=== PATIENT | male | born 1930 | race Caucasian/White ===

== ENCOUNTER 2018-05-23 11:36 | Inpatient (IN) ==
[2018-05-23 12:25] LABS: Baso # (Auto) 0.1 th/mm3 (0.0-0.2); Baso % (Auto) 0.8 % (0.0-2.0); Eos # (Auto) 0.1 th/mm3 (0.0-0.4); Eos % (Auto) 0.6 % (0.0-4.0); Hematocrit 42.6 % (39.0-51.0); Hemoglobin 13.5 gm/dL (13.0-17.0); Lymph # (Auto) 1.2 th/mm3 (1.0-4.8); Lymph % (Auto) 14.1 % (9.0-44.0); Mean Corpuscular HGB Conc 31.7 % (32.0-36.0); Mean Corpuscular Hemoglobin 25.8 pg (27.0-34.0); Mean Corpuscular Volume 81.4 fL (80.0-100.0); Mean Platelet Volume 10.9 fL (7.0-11.0); Mono # (Auto) 0.6 th/mm3 (0.0-0.9); Mono % (Auto) 7.2 % (0.0-8.0); Neut # (Auto) 6.5 th/mm3 (1.8-7.7); Neut % (Auto) 77.3 % (16.0-70.0); Platelet Count 169 th/mm3 (150-450); Red Blood Count 5.23 mil/mm3 (4.50-5.90); Red Cell Distribution Width 16.2 % (11.6-17.2); White Blood Count 8.5 th/mm3 (4.0-11.0)
[2018-05-23 12:32] LABS: Chloride 97 meq/L (98-107); Sodium 131 meq/L (136-145)
--- NOTE | 2018-05-23 12:32 | ED ---
HPI General Chief complaint: GI Bleed Stated complaint: fatigue/weakness/no appetite/blood in the stool Time Seen by Provider: 05/23/18 12:02 Source: patient Mode of arrival: ambulatory Limitations: no limitations History of Present Illness HPI Narrative: Patient's primary care is Dr. Perez No known drug allergy Past medical history significant for hypertension, deafness, blindness, history of pacemaker, history of left knee replacement, currently on Plavix Patient has had 3 days history of bright red blood per rectum with every bowel movement that he has had. Patient denies any abdominal pain nausea or vomiting MD complaint: Reports gross hematochezia Onset (ago): day(s) (3) Pain Consistency: constant Severity: moderate Relieving factors: none Exacerbating factors: none Associated symptoms: Reports denies other symptoms Treatments Prior to Arrival: Reports none Related Data Home Medications Medication Instructions Recorded Confirmed amlodipine 5 mg PO DAILY 05/23/18 05/23/18 carvedilol 3.125 mg PO BID 05/23/18 05/23/18 furosemide 20 mg PO DAILY 05/23/18 05/23/18 oxycodone 5 mg PO Q4-6H PRN 05/23/18 05/23/18 spironolactone 25 mg PO DAILY 05/23/18 05/23/18 sulfamethoxazole-trimethoprim 2 tab PO BID 05/23/18 05/23/18 Allergies Allergy/AdvReac Type Severity Reaction Status Date / Time No Known Allergies Allergy Verified 05/23/18 12:04 Review of Systems ROS: all other systems reviewed are negative PMFSH History History Provided By: Patient Medical History Medical History Blindness of left eye (Acute) 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 (Acute) History of pacemaker (Acute) Hypertension (Acute) Surgical History Surgical History History of left knee replacement (Acute) Hx of amputation of lesser toe (Acute) Hx of hammer toe correction (Acute) Social History Social History Second Hand Smoke Exposure: No Smoking Status: Never smoker How Often Do You Have a Drink Containing Alcohol: Never Recent Travel in [facility] within the Last 8 Weeks: No Recent Out of Country Travel within the Last 8 Weeks: No Immunization History Tetanus Immunization: <5 Years Exam Narrative Exam Narrative: GENERAL: Elderly male in no apparent distress. SKIN: Warm and dry. HEAD: Atraumatic. Normocephalic. EYES: Pupils equal and round. No scleral icterus. No injection or drainage. ENT: No nasal bleeding or discharge. Mucous membranes pink and moist. NECK: Trachea midline. No JVD. CARDIOVASCULAR: Regular rate and rhythm. no rubs or gallops RESPIRATORY: No accessory muscle use. Clear to auscultation. Breath sounds equal bilaterally. GASTROINTESTINAL: Abdomen soft, non-tender, nondistended. No rebound or guarding .... On rectal exam there is no evidence of any external hemorrhoids or anal fissure. However the patient has gross hematochezia MUSCULOSKELETAL: Extremities without clubbing, cyanosis, or edema. No obvious deformities. NEUROLOGICAL: Awake and alert. No obvious cranial nerve deficits. Motor grossly within normal limits. Five out of 5 muscle strength in the arms and legs. Normal speech. PSYCHIATRIC: Appropriate mood and affect; insight and judgment normal. Course Initial Documented Vital Signs Temperature 97.9 F 05/23/18 11:38 Pulse Rate 81 05/23/18 11:38 Respiratory Rate 16 05/23/18 11:38 Blood Pressure 163/69 H 05/23/18 11:38 Pulse Oximetry 96 05/23/18 11:38 Last Documented Vital Signs Temperature 97.9 F 05/23/18 11:38 Pulse Rate 81 05/23/18 11:38 Respiratory Rate 16 05/23/18 11:38 Blood Pressure 163/69 H 05/23/18 11:38 Pulse Oximetry 96 05/23/18 11:38 Medical Decision Making [facility] Narrative Medical decision making narrative: No leukocytosis no anemia no left shift, low MCH consistent with blood loss, normal platelet count Regulation profile pending as of 1254 Electrolytes are all within normal limits except for minimal hyponatremia [address] abdomen pelvis read by radiologist shows no acute evidence of abdominal or pelvic process no masses are identified. Diverticulosis without evidence of diverticulitis. 4.5 cm AAA noted without evidence of acute rupture. all findings shared with son and patient...patient will follow up with his vascular surgeon Dr Clifford in [place] for further management of AAA discussed with dr hernández who requested consent for colonoscopy, and patient be on clear liquid diet, be given golytely 1 gallon, then kept NPO after midnight and will be scoped tomorrow am Medical Screen Exam Complete: Yes Emergency Medical Condition: Yes Medical Records Medical records reviewed: Yes I reviewed the patient's medical records. Lab Data Result diagrams: 05/23/18 12:10 05/23/18 12:10 Lab Results 05/23/18 05/23/18 05/23/18 Range/Units 12:10 12:10 12:10 CBC w Diff Auto diff final WBC 8.5 (4.0-11.0) th/mm3 RBC 5.23 (4.50-5.90) mil/mm3 Hgb 13.5 (13.0-17.0) gm/dL Hct 42.6 (39.0-51.0) % MCV 81.4 (80.0-100.0) fL MCH 25.8 L (27.0-34.0) pg MCHC 31.7 L (32.0-36.0) % RDW 16.2 (11.6-17.2) % Plt Count 169 (150-450) th/mm3 MPV 10.9 (7.0-11.0) fL Neut % (Auto) 77.3 H (16.0-70.0) % Lymph % (Auto) 14.1 (9.0-44.0) % Duchesne % (Auto) 7.2 (0.0-8.0) % Eos % (Auto) 0.6 (0.0-4.0) % Baso % (Auto) 0.8 (0.0-2.0) % Neut # (Auto) 6.5 (1.8-7.7) th/mm3 Lymph # (Auto) 1.2 (1.0-4.8) th/mm3 Duchesne # (Auto) 0.6 (0.0-0.9) th/mm3 Eos # (Auto) 0.1 (0.0-0.4) th/mm3 Baso # (Auto) 0.1 (0.0-0.2) th/mm3 WBC Differential . Differential Comment . PT 10.7 (9.8-11.6) sec INR 1.1 Ratio APTT 29.1 (23.4-31.7) sec Sodium 131 L (136-145) meq/L Potassium 5.0 (3.5-5.1) meq/L Chloride 97 L (98-107) meq/L Carbon Dioxide 26.6 (21.0-32.0) meq/L Anion Gap 7 (5-15) meq/L BUN 36 H (7-18) mg/dL Creatinine 2.00 H (0.60-1.30) mg/dL Estimated GFR 32 L (>89) mL/min Random Glucose 136 H (74-106) mg/dL Calcium 9.0 (8.5-10.1) mg/dL Total Bilirubin 0.7 (0.2-1.0) mg/dL AST 15 (15-37) U/L ALT 13 (12-78) U/L Alkaline Phosphatase 106 (45-117) U/L Total Protein 8.2 (6.4-8.2) g/dL Albumin 3.5 (3.4-5.0) g/dL Lipase 215 (73-393) U/L Serum Alcohol Less than 3 (0-5) mg/dL Imaging Data Radiologist's impression: Abdomen/Pelvis CT 05/23/18 12:03 CONCLUSION: No evidence of acute abdominal or pelvic process. No masses are identified. 4.5 cm abdominal aortic aneurysm. CT angiography of the abdominal aorta and lower extremities is recommended for further evaluation if clinically indicated. Diverticulosis without evidence of diverticulitis. Discharge Plan Discharge Disposition Patient Disposition: ED Admit(ED Internal Use Only) Discharge Condition Condition: Stable Physicians Team ED Provider: Diony Berg Primary Care Provider: Power Perez Rxs /Orders / Referrals /Forms Prescriptions: No Action sulfamethoxazole-trimethoprim 400-80 mg Tablet 2 tab PO BID RF: 0 amlodipine 5 mg Tablet 5 mg PO DAILY RF: 0 spironolactone 25 mg Tablet 25 mg PO DAILY RF: 0 carvedilol 3.125 mg Tablet 3.125 mg PO BID RF: 0 furosemide 20 mg Tablet 20 mg PO DAILY RF: 0 oxycodone 5 mg Tablet 5 mg PO Q4-6H PRN (Reason: Pain) RF: 0 Status ED Status: With Doctor
[2018-05-23 12:36] LABS: Albumin 3.5 g/dL (3.4-5.0); Anion Gap 7 meq/L (5-15); Blood Urea Nitrogen 36 mg/dL (7-18); Carbon Dioxide 26.6 meq/L (21.0-32.0); Glucose,Random 136 mg/dL (74-106); Lipase 215 U/L (73-393)
[2018-05-23 12:39] LABS: Alanine Aminotransferase 13 U/L (12-78); Aspartate Aminotransferase 15 U/L (15-37); Glomerular Filtration Rate 32 mL/min (>89)
[2018-05-23 12:41] LABS: Total Protein 8.2 g/dL (6.4-8.2)
[2018-05-23 12:42] LABS: Alkaline Phosphatase 106 U/L (45-117)
--- NOTE | 2018-05-23 12:42 | CT ---
EXAM DATE: 05/23/2018 12:34 PM EST AGE/SEX: 87 years / Male INDICATIONS: General weakness, loss of appetite, and blood in stool. CLINICAL DATA: This is the patient's initial encounter. Patient reports that signs and symptoms have been present for 1 day and indicates a pain score of 0/10. MEDICAL/SURGICAL HISTORY: Cardiovascular disease. Hypertension. Pacemaker. RADIATION DOSE: 10.24 CTDI (mGy) COMPARISON: No prior exams available for comparison. TECHNIQUE: Multiple contiguous axial images were obtained through the abdomen. Images were obtained using multiple row detector helical technique. Using automated exposure control and adjustment of the mA and/or kV according to patient size, radiation dose was kept as low as reasonably achievable to o btain optimal diagnostic quality images. DICOM format image data is available electronically for rev iew and comparison. FINDINGS: Examination of the lung bases demonstrates no abnormality. No pleural fluid is identified. No pulmona ry nodules are present. The liver and spleen are normal in size and no focal defects are identified. The gallbladder and pancreas are unremarkable. No intrahepatic or extrahepatic ductal dilatation is seen. The adrenal glands are unremarkable. The right kidney is not visualized. There are multiple sim ple cysts in the left kidney the largest measuring 2 cm in the upper pole. Examination demonstrates an infrarenal abdominal aortic aneurysm measuring 4.[address] angiography cou ld be performed to further evaluate this. Examination of the pelvis demonstrates no evidence of free fluid or pelvic mass. No abnormally enlarg ed inguinal or retroperitoneal lymph nodes are present. The bladder is unremarkable. There is diverti culosis without evidence of diverticulitis. CONCLUSION: No evidence of acute abdominal or pelvic process. No masses are identified. 4.5 cm abdominal aortic aneurysm. CT angiography of the abdominal aorta and lower extremities is kailyn mmended for further evaluation if clinically indicated. Diverticulosis without evidence of diverticulitis. Electronically signed by: Power Garcia MD Board Certified Radiologist 05/23/2018 12:40 PM EST
[2018-05-23 13:07] LABS: Activated Partial Thrombo Time 29.1 sec (23.4-31.7); INR 1.1 Ratio; Prothrombin Time 10.7 sec (9.8-11.6)
[2018-05-23] MEDS ORDERED: Bisacodyl 10 MG Supp RECTAL PRN (15:13)
[2018-05-23] MEDS ORDERED: Acetaminophen 325 MG Tablet PO PRN (15:13)
[2018-05-23] MEDS ORDERED: PEG 3350/E-Lyte Soln 4000 ML Bottle PO ONE (15:30)
--- NOTE | 2018-05-23 15:53 | P.HPIM ---
History of Present Illness Primary Care Physician: Power Perez [facility] Medical History Medical History Blindness of left eye (Acute) 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 (Acute) History of pacemaker (Acute) Hypertension (Acute) Surgical History Surgical History History of left knee replacement (Acute) Hx of amputation of lesser toe (Acute) Hx of hammer toe correction (Acute) Social History Social History Substance History: No History of Abuse Second Hand Smoke Exposure: No Smoking Status: Never smoker How Often Do You Have a Drink Containing Alcohol: Never Recent Travel in [place] within the Last 8 Weeks: No Recent Out of Country Travel within the Last 8 Weeks: No Immunization History Tetanus Immunization: >5 Years Hx Influenza Vaccine This Season: Yes Medications and Allergies Allergies Allergy/AdvReac Type Severity Reaction Status Date / Time No Known Allergies Allergy Verified 05/23/18 12:04 Home Medications Medication Instructions Recorded Confirmed Type amlodipine 5 mg PO DAILY 05/23/18 05/23/18 History carvedilol 3.125 mg PO BID 05/23/18 05/23/18 History furosemide 20 mg PO DAILY 05/23/18 05/23/18 History oxycodone 5 mg PO Q4-6H PRN 05/23/18 05/23/18 History spironolactone 25 mg PO DAILY 05/23/18 05/23/18 History sulfamethoxazole-trimethoprim 2 tab PO BID 05/23/18 05/23/18 History Active Medications: Active Medications Acetaminophen (Tylenol) 650 mg PO Q4H PRN PRN Reason: Temp > 100.4 Al Hydroxide/Mg Hydroxide (Milk Of Magnesia Liq) 30 ml PO Q12H PRN PRN Reason: Mild Constipation Bisacodyl (Dulcolax Supp) 10 mg RECTAL DAILY PRN PRN Reason: SEVERE CONSITIPATION Sodium Chloride (Ns Inj) 1,000 mls @ 50 mls/hr IV.CONT .Q20H MC Lactulose (Lactulose Liq) 30 ml PO DAILY PRN PRN Reason: SEVERE CONSITIPATION Ondansetron HCl (Zofran Inj) 4 mg IV.PUSH Q6H PRN PRN Reason: NAUSEA OR VOMITING Sennosides (Senokot) 17.2 mg PO Q12H PRN PRN Reason: Moderate Constipation Sodium Chloride (Ns Flush) 2 ml IV.FLUSH PRN PRN PRN Reason: FLUSH AFTER USING IV ACCESS Sodium Chloride (Ns Flush) 2 ml IV.FLUSH BID MC Physical Exam Vital signs: Vital Signs 05/23/18 11:38 Temperature 97.9 F Pulse Rate 81 Respiratory Rate 16 Blood Pressure 163/69 H Pulse Oximetry 96 Intake & Output 05/22/18 05/23/18 05/23/18 18:59 06:59 18:59 Weight 83.915 kg Other: Weight On Admission 83 kg Results Labs CBC & Chem 7: 05/23/18 12:10 05/23/18 12:10 Imaging Impressions Abdomen/Pelvis CT 05/23/18 12:03 CONCLUSION: No evidence of acute abdominal or pelvic process. No masses are identified. 4.5 cm abdominal aortic aneurysm. CT angiography of the abdominal aorta and lower extremities is recommended for further evaluation if clinically indicated. Diverticulosis without evidence of diverticulitis. Caprini VTE Risk Assessment Caprini Risk Assessment Model: Point Value = 1 Point Value = 2 Point Value = 3 Point Value = 5 Age 41-60 Minor surgery BMI > 25 kg/m2 Swollen legs Varicose veins or History of unexplained or recurrent spontaneous Oral contraceptives or hormone replacement Sepsis (< 1 month) Serious lung disease, including pneumonia (< 1 month) Abnormal pulmonary function Acute myocardial infarction Congestive heart failure (< 1 month) History of inflammatory bowel disease Medical patient at bed rest Age 61-74 Arthroscopic surgery Major open surgery (> 45 min) Laparoscopic surgery (> 45 min) Malignancy Confined to bed (> 72 hours) Immobilizing plaster cast Central venous access Age >= 75 History of VTE Family history of VTE Factor V Leiden Prothrombin [id number] Lupus anticoagulant Anticardiolipin antibodies Elevated serum homocysteine Heparin-induced thrombocytopenia Other congenital or acquired thrombophilia Stroke (< 1 month) Elective arthroplasty Hip, pelvis, or leg fracture Acute spinal cord injury (< 1 month) Prophylaxis Regimen: Total Risk Factor Score Risk Level Prophylaxis Regimen 0-1 Low Early ambulation 2 Moderate Order ONE of the following: *Sequential Compression Device (SCD) *Heparin 5000 units SQ BID 3-4 Higher Order ONE of the following medications: *Heparin 5000 units SQ TID *Enoxaparin/Lovenox 40 mg SQ daily (WT < 150 kg, CrCl > 30 mL/min) *Enoxaparin/Lovenox 30 mg SQ daily (WT < 150 kg, CrCl > 10-29 mL/min) *Enoxaparin/Lovenox 30 mg SQ BID (WT < 150 kg, CrCl > 30 mL/min) AND/OR *Sequential Compression Device (SCD) 5 or more Highest Order ONE of the following medications: *Heparin 5000 units SQ TID (Preferred with Epidurals) *Enoxaparin/Lovenox 40 mg SQ daily (WT < 150 kg, CrCl > 30 mL/min) *Enoxaparin/Lovenox 30 mg SQ daily (WT < 150 kg, CrCl > 10-29 mL/min) *Enoxaparin/Lovenox 30 mg SQ BID (WT < 150 kg, CrCl > 30 mL/min) AND *Sequential Compression Device (SCD) H&P: Quality VTE Deep Vein Thrombosis/Pulmonary Embolism Present on Admission: No
[2018-05-23] MEDS ORDERED: Pantoprazole Inj 40 MG Vial IV.PUSH SCH (16:00)
--- NOTE | 2018-05-23 16:14 | P.HPIM ---
History of Present Illness Primary Care Physician: Power Perez MD Chief Complaint: Bright red blood per rectum History of Present Illness: 87-year-old male who past medical history of CHF, CAD, hypertension came to the ED for evaluation of 3-day history of bright red blood per rectum without any associated abdominal pain. Denies any hemoptysis, hematuria. Patient's on Plavix. H&H was stable in the ED not requiring any blood transfusion. Gastroenterology was consulted for evaluation for colonoscopy. Patient denies any chest pain or shortness of breath. Vitals are unremarkable. Review of Systems Review of Systems: all other systems reviewed are negative [facility] Medical History Medical History Blindness of left eye (Acute) 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 (Acute) History of pacemaker (Acute) Hypertension (Acute) Surgical History Surgical History History of left knee replacement (Acute) Hx of amputation of lesser toe (Acute) Hx of hammer toe correction (Acute) Social History Social History Substance History: No History of Abuse Second Hand Smoke Exposure: No Smoking Status: Never smoker How Often Do You Have a Drink Containing Alcohol: Never Recent Travel in [facility] within the Last 8 Weeks: No Recent Out of Country Travel within the Last 8 Weeks: No Immunization History Tetanus Immunization: >5 Years Hx Influenza Vaccine This Season: Yes Medications and Allergies Allergies Allergy/AdvReac Type Severity Reaction Status Date / Time No Known Allergies Allergy Verified 05/23/18 12:04 Home Medications Medication Instructions Recorded Confirmed Type amlodipine 5 mg PO DAILY 05/23/18 05/23/18 History carvedilol 3.125 mg PO BID 05/23/18 05/23/18 History furosemide 20 mg PO DAILY 05/23/18 05/23/18 History oxycodone 5 mg PO Q4-6H PRN 05/23/18 05/23/18 History spironolactone 25 mg PO DAILY 05/23/18 05/23/18 History sulfamethoxazole-trimethoprim 2 tab PO BID 05/23/18 05/23/18 History Active Medications: Active Medications Acetaminophen (Tylenol) 650 mg PO Q4H PRN PRN Reason: Temp > 100.4 Al Hydroxide/Mg Hydroxide (Milk Of Magnesia Liq) 30 ml PO Q12H PRN PRN Reason: Mild Constipation Amlodipine Besylate (Norvasc) 5 mg PO DAILY MC Bisacodyl (Dulcolax Supp) 10 mg RECTAL DAILY PRN PRN Reason: SEVERE CONSITIPATION Carvedilol (Coreg) 3.125 mg PO BID PENDING SALE TO [facility] Furosemide (Lasix) 20 mg PO DAILY PENDING SALE TO [facility] Sodium Chloride (Ns Inj) 1,000 mls @ 50 mls/hr IV.CONT .Q20H MC Lactulose (Lactulose Liq) 30 ml PO DAILY PRN PRN Reason: SEVERE CONSITIPATION Ondansetron HCl (Zofran Inj) 4 mg IV.PUSH Q6H PRN PRN Reason: NAUSEA OR VOMITING Oxycodone HCl (Roxicodone) 5 mg PO Q6H PRN PRN Reason: Pain Pantoprazole Sodium (Protonix Inj) 40 mg IV.PUSH Q12H PENDING SALE TO [facility] Sennosides (Senokot) 17.2 mg PO Q12H PRN PRN Reason: Moderate Constipation Sodium Chloride (Ns Flush) 2 ml IV.FLUSH PRN PRN PRN Reason: FLUSH AFTER USING IV ACCESS Sodium Chloride (Ns Flush) 2 ml IV.FLUSH BID PENDING SALE TO [facility] Spironolactone (Aldactone) 25 mg PO DAILY PENDING SALE TO [facility] Physical Exam Vital signs: Vital Signs 05/23/18 11:38 Temperature 97.9 F Pulse Rate 81 Respiratory Rate 16 Blood Pressure 163/69 H Pulse Oximetry 96 Intake & Output 05/22/18 05/23/18 05/23/18 18:59 06:59 18:59 Weight 83.915 kg Other: Weight On Admission 83 kg Narrative: GENERAL: NAD SKIN: Warm and dry. HEAD: Atraumatic. Normocephalic. EYES: Pupils equal and round. No scleral icterus. No injection or drainage. ENT: No nasal bleeding or discharge. Mucous membranes pink and moist. NECK: Trachea midline. No JVD. CARDIOVASCULAR: Regular rate and rhythm. RESPIRATORY: No accessory muscle use. Clear to auscultation. Breath sounds equal bilaterally. GASTROINTESTINAL: Abdomen soft, non-tender, nondistended. Hepatic and splenic margins not palpable. MUSCULOSKELETAL: Extremities without clubbing, cyanosis, or edema. No obvious deformities. NEUROLOGICAL: Awake and alert. No obvious cranial nerve deficits. Motor grossly within normal limits. Five out of 5 muscle strength in the arms and legs. Normal speech. PSYCHIATRIC: Appropriate mood and affect; insight and judgment normal. Results Labs CBC & Chem 7: 05/23/18 12:10 05/23/18 12:10 Imaging Impressions Abdomen/Pelvis CT 05/23/18 12:03 CONCLUSION: No evidence of acute abdominal or pelvic process. No masses are identified. 4.5 cm abdominal aortic aneurysm. CT angiography of the abdominal aorta and lower extremities is recommended for further evaluation if clinically indicated. Diverticulosis without evidence of diverticulitis. Caprini VTE Risk Assessment Caprini VTE Risk Assessment: Moderate/High Risk (score >= 2) VTE Pharmacological Exception Reason: Active bleeding Caprini Risk Assessment Model: Point Value = 1 Point Value = 2 Point Value = 3 Point Value = 5 Age 41-60 Minor surgery BMI > 25 kg/m2 Swollen legs Varicose veins or History of unexplained or recurrent spontaneous Oral contraceptives or hormone replacement Sepsis (< 1 month) Serious lung disease, including pneumonia (< 1 month) Abnormal pulmonary function Acute myocardial infarction Congestive heart failure (< 1 month) History of inflammatory bowel disease Medical patient at bed rest Age 61-74 Arthroscopic surgery Major open surgery (> 45 min) Laparoscopic surgery (> 45 min) Malignancy Confined to bed (> 72 hours) Immobilizing plaster cast Central venous access Age >= 75 History of VTE Family history of VTE Factor V Leiden Prothrombin [id number] Lupus anticoagulant Anticardiolipin antibodies Elevated serum homocysteine Heparin-induced thrombocytopenia Other congenital or acquired thrombophilia Stroke (< 1 month) Elective arthroplasty Hip, pelvis, or leg fracture Acute spinal cord injury (< 1 month) Prophylaxis Regimen: Total Risk Factor Score Risk Level Prophylaxis Regimen 0-1 Low Early ambulation 2 Moderate Order ONE of the following: *Sequential Compression Device (SCD) *Heparin 5000 units SQ BID 3-4 Higher Order ONE of the following medications: *Heparin 5000 units SQ TID *Enoxaparin/Lovenox 40 mg SQ daily (WT < 150 kg, CrCl > 30 mL/min) *Enoxaparin/Lovenox 30 mg SQ daily (WT < 150 kg, CrCl > 10-29 mL/min) *Enoxaparin/Lovenox 30 mg SQ BID (WT < 150 kg, CrCl > 30 mL/min) AND/OR *Sequential Compression Device (SCD) 5 or more Highest Order ONE of the following medications: *Heparin 5000 units SQ TID (Preferred with Epidurals) *Enoxaparin/Lovenox 40 mg SQ daily (WT < 150 kg, CrCl > 30 mL/min) *Enoxaparin/Lovenox 30 mg SQ daily (WT < 150 kg, CrCl > 10-29 mL/min) *Enoxaparin/Lovenox 30 mg SQ BID (WT < 150 kg, CrCl > 30 mL/min) AND *Sequential Compression Device (SCD) Assessment and Plan Plan 87-year-old man with Acute GI bleeding Episode of bright red blood per rectum times 3 days GI has been consulted for evaluation for colonoscopy in a.m. May 24, 2018 Start PPI IV daily, clear liquid and n.p.o. after midnight Hold Plavix Continue serial H&H monitoring and transfuse accordingly History of hypertension, CHF And other chronic medical conditions Resume outpatient medications Chronic kidney disease Currently @ his baseline, continue to monitor BUN and creatinine, avoid all toxic drugs DVT prophylaxis: Chemical anti-prophylaxis contraindicated secondary to active GI bleed GI prophylaxis: PPI H&P: Quality VTE Deep Vein Thrombosis/Pulmonary Embolism Present on Admission: No
[2018-05-23] MEDS: Sod Chloride 0.9% Inj 1,000 ML IV.CONT SCH (16:48)
[2018-05-23 18:54] LABS: Hematocrit 45.5 % (39.0-51.0); Hemoglobin 13.7 gm/dL (13.0-17.0)
--- NOTE | 2018-05-23 21:08 | ECG ---
Date Performed: 05/23/2018 Time Performed: 19:52:43 PTAGE: 87 years EKG: ATRIAL FIBRILLATION WITH RAPID VENTRICULAR RESPONSE SEPTAL MYOCARDIAL INFARCTION ST/T-WAVE ABNORMALITY, CONSIDER LATERAL ISCHEMIA ST ABNORMALITY, CONSIDER INFERIOR ISCHEMIA ABNORMAL ECG NO PREVIOUS TRACING DOCTOR: Jean Carlos Jernigan Interpretating Date/Time 05/23/2018 21:06:25
[2018-05-23] MEDS: Sulfamethoxazole/Trimethoprim 400/80 MG Tablet PO SCH (22:17)
--- NOTE | 2018-05-23 23:04 | P.CONGI ---
History of Present Illness Consult date: 05/23/18 Consult reason: Rectal bleeding Chief complaint: Active GI Bleed,hemodynamically stable,colonoscopy History of Present Illness: Patient is a pleasant 87-year-old gentleman who presents to the emergency room with 3-day history of bright red blood per rectum initially there was large amount of blood noted with stools but then thereafter he had small amounts of blood all fresh looking the patient denies any diarrhea or constipation any straining denies any hemorrhoids that he knows of the patient is on Plavix he denies any headache dizziness blurry vision chest pain shortness of breath cough fever chills he is never had a colonoscopy before Review of Systems A 12 system review is otherwise unremarkable [facility] - History History Provided By: Patient, Family Member - Medical History Medical History: Medical History (Last Reviewed 05/23/18 @ 12:30 by Diony Berg) 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 Hypertension - Surgical History Surgical History: Surgical History (Last Reviewed 05/23/18 @ 12:30 by Diony Berg) 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 Hx of hammer toe correction - Tobacco History Second Hand Smoke Exposure: No Tobacco Use In Past 30 Days: No Smoking Status: Never smoker - Alcohol History How Often Do You Have a Drink Containing Alcohol: Never - Substance Use History Substance History: No History of Abuse - Travel History Recent Travel in the [place] Within the Last 8 Weeks: No Recent Travel Out of the Country Within the Last 8 Weeks: No - Immunization History Tetanus Immunization: >5 Years Hx Influenza Vaccine This Season: Yes Medications and Allergies Active Medications: Active Medications Acetaminophen (Tylenol) 650 mg PO Q4H PRN PRN Reason: Temp > 100.4 Al Hydroxide/Mg Hydroxide (Milk Of Magnesia Liq) 30 ml PO Q12H PRN PRN Reason: Mild Constipation Amlodipine Besylate (Norvasc) 5 mg PO DAILY [facility] Bisacodyl (Dulcolax Supp) 10 mg RECTAL DAILY PRN PRN Reason: SEVERE CONSITIPATION Carvedilol (Coreg) 3.125 mg PO BID [facility] Last Admin: 05/23/18 21:22 Dose: Not Given Clonidine HCl (Catapres) 0.1 mg PO Q6H PRN PRN Reason: SBP>160, DBP>90 Furosemide (Lasix) 20 mg PO DAILY [facility] Sodium Chloride (Ns Inj) 1,000 mls @ 50 mls/hr IV.CONT .Q20H [facility] Last Admin: 05/23/18 16:48 Dose: 50 mls/hr Lactulose (Lactulose Liq) 30 ml PO DAILY PRN PRN Reason: SEVERE CONSITIPATION Ondansetron HCl (Zofran Inj) 4 mg IV.PUSH Q6H PRN PRN Reason: NAUSEA OR VOMITING Oxycodone HCl (Roxicodone) 5 mg PO Q6H PRN PRN Reason: PAIN SCALE 1 TO 10 Pantoprazole Sodium (Protonix Inj) 40 mg IV.PUSH DAILY [facility] Sennosides (Senokot) 17.2 mg PO Q12H PRN PRN Reason: Moderate Constipation Sodium Chloride (Ns Flush) 2 ml IV.FLUSH PRN PRN PRN Reason: FLUSH AFTER USING IV ACCESS Sodium Chloride (Ns Flush) 2 ml IV.FLUSH BID [facility] Last Admin: 05/23/18 21:22 Dose: Not Given Spironolactone (Aldactone) 25 mg PO DAILY [facility] Trimethoprim/Sulfamethoxazole (Bactrim) 2 tab PO BID [facility] Stop: 05/26/18 21:01 Last Admin: 05/23/18 22:17 Dose: 2 tab Allergies Allergy/AdvReac Type Severity Reaction Status Date / Time No Known Allergies Allergy Verified 05/23/18 12:04 Home Medications Medication Instructions Recorded Confirmed Type amlodipine 5 mg PO DAILY 05/23/18 05/23/18 History aspirin [Aspir-81] 81 mg PO DAILY 05/23/18 05/23/18 History carvedilol 3.125 mg PO DAILY 05/23/18 05/23/18 History furosemide 20 mg PO DAILY 05/23/18 05/23/18 History oxycodone 5 mg PO Q4-6H PRN 05/23/18 05/23/18 History spironolactone 25 mg PO DAILY 05/23/18 05/23/18 History sulfamethoxazole-trimethoprim 2 tab PO BID 05/23/18 05/23/18 History Exam Vital signs: Vital Signs 05/23/18 11:38 05/23/18 20:00 Temperature 97.9 F 96.2 F L Pulse Rate 81 93 H Respiratory Rate 16 20 Blood Pressure 163/69 H 135/80 Pulse Oximetry 96 95 Intake & Output 05/23/18 05/23/18 05/24/18 06:59 18:59 06:59 Weight 83.915 kg Other: Weight On Admission 83 kg - Constitutional no acute distress - Routine HEENT Exam Head: Present: normocephalic, atraumatic Eye: Present: EOMI ENT: Present: mucous membranes moist - Routine Neck Exam Present: supple. Absent: JVD - Routine Respiratory Exam Present: CTA bilaterally. Absent: accessory muscle use - Routine Cardiovascular Exam Present: RRR. Absent: gallop - Routine Abdominal Exam Present: soft, normoactive bowel sounds. Absent: tenderness, distended, rebound , organomegaly - Routine Extremities Exam Absent: cyanosis, clubbing, edema Comments: Toes amputated Results - Labs CBC & Chem 7: 05/23/18 18:15 05/23/18 12:10 Labs: Laboratory Results - last 24 hr 05/23/18 05/23/18 05/23/18 12:10 12:10 12:10 CBC w Diff Auto diff final WBC 8.5 RBC 5.23 Hgb 13.5 Hct 42.6 MCV 81.4 MCH 25.8 L MCHC 31.7 L RDW 16.2 Plt Count 169 MPV 10.9 Neut % (Auto) 77.3 H Lymph % (Auto) 14.1 Converse % (Auto) 7.2 Eos % (Auto) 0.6 Baso % (Auto) 0.8 Neut # (Auto) 6.5 Lymph # (Auto) 1.2 Converse # (Auto) 0.6 Eos # (Auto) 0.1 Baso # (Auto) 0.1 WBC Differential . Differential Comment . PT 10.7 INR 1.1 APTT 29.1 Sodium 131 L Potassium 5.0 Chloride 97 L Carbon Dioxide 26.6 Anion Gap 7 BUN 36 H Creatinine 2.00 H Estimated GFR 32 L Random Glucose 136 H Calcium 9.0 Total Bilirubin 0.7 AST 15 ALT 13 Alkaline Phosphatase 106 Total Protein 8.2 Albumin 3.5 Lipase 215 Serum Alcohol Less than 3 Blood Type Blood Type Recheck Antibody Screen 05/23/18 05/23/18 12:55 18:15 CBC w Diff WBC RBC Hgb 13.7 Hct 45.5 MCV MCH MCHC RDW Plt Count MPV Neut % (Auto) Lymph % (Auto) Converse % (Auto) Eos % (Auto) Baso % (Auto) Neut # (Auto) Lymph # (Auto) Converse # (Auto) Eos # (Auto) Baso # (Auto) WBC Differential Differential Comment PT INR APTT Sodium Potassium Chloride Carbon Dioxide Anion Gap BUN Creatinine Estimated GFR Random Glucose Calcium Total Bilirubin AST ALT Alkaline Phosphatase Total Protein Albumin Lipase Serum Alcohol Blood Type A Positive Blood Type Recheck Required Antibody Screen Negative - Imaging Impressions Abdomen/Pelvis CT 05/23/18 12:03 CONCLUSION: No evidence of acute abdominal or pelvic process. No masses are identified. 4.5 cm abdominal aortic aneurysm. CT angiography of the abdominal aorta and lower extremities is recommended for further evaluation if clinically indicated. Diverticulosis without evidence of diverticulitis. Assessment and Plan - Plan Rectal bleeding etiology unclear never had a colonoscopy Currently no active bleeding and the patient appears to be hemodynamically stable Will plan for colonoscopy tomorrow In the meanwhile continue with current supportive care Monitor labs and transfuse as needed
[2018-05-23 23:29] LABS: Hematocrit 40.9 % (39.0-51.0); Hemoglobin 13.2 gm/dL (13.0-17.0)
[2018-05-24 06:37] LABS: Baso % (Auto) 0.6 % (0.0-2.0); Eos % (Auto) 0.7 % (0.0-4.0); Hematocrit 38.2 % (39.0-51.0); Hemoglobin 11.9 gm/dL (13.0-17.0); Lymph # (Auto) 1.5 th/mm3 (1.0-4.8); Lymph % (Auto) 21.4 % (9.0-44.0); Mean Corpuscular HGB Conc 31.2 % (32.0-36.0); Mean Corpuscular Volume 80.2 fL (80.0-100.0); Mean Platelet Volume 11.5 fL (7.0-11.0); Neut # (Auto) 4.3 th/mm3 (1.8-7.7); Neut % (Auto) 63.3 % (16.0-70.0); Platelet Count 139 th/mm3 (150-450); Red Blood Count 4.76 mil/mm3 (4.50-5.90); Red Cell Distribution Width 16.2 % (11.6-17.2); White Blood Count 6.8 th/mm3 (4.0-11.0)
[2018-05-24 06:52] LABS: Calcium 8.3 mg/dL (8.5-10.1); Carbon Dioxide 26.1 meq/L (21.0-32.0); Potassium 4.1 meq/L (3.5-5.1)
[2018-05-24 08:03] LABS: Ovalocytes 1+; Platelet Estimate Normal (Normal); Platelet Morphology Normal (Normal)
[2018-05-24] MEDS: amLODIPine 5 MG Tablet PO SCH (09:20)
[2018-05-24] MEDS: Furosemide 20 MG Tablet PO SCH (09:20)
[2018-05-24] MEDS: Sulfamethoxazole/Trimethoprim 400/80 MG Tablet PO SCH ×2 (09:21→23:04)
[2018-05-24] MEDS: Spironolactone 25 MG Tablet PO SCH (09:21)
[2018-05-24] MEDS: Pantoprazole Inj 40 MG Vial IV.PUSH SCH (09:26)
--- NOTE | 2018-05-24 10:20 | P.PNIM ---
Subjective Interval history: Follow-up acute GI bleed May 24, 2018patient seen and examined he has a slight decrease in H&H. Currently n.p.o. pending colonoscopy. Physical Exam Vital signs: Vital Signs 05/23/18 11:38 05/23/18 20:00 05/23/18 23:32 Temperature 97.9 F 96.2 F L Pulse Rate 81 93 H 104 H Respiratory Rate 16 20 Blood Pressure 163/69 H 135/80 Pulse Oximetry 96 95 05/24/18 00:00 05/24/18 00:04 05/24/18 04:00 Temperature 96.1 F L 97.2 F L Pulse Rate 97 H 102 H 92 H Respiratory Rate 20 22 Blood Pressure 147/70 H 131/55 L Pulse Oximetry 95 96 05/24/18 04:01 05/24/18 08:00 Temperature 97.7 F Pulse Rate 92 H 86 Respiratory Rate 20 Blood Pressure 135/73 Pulse Oximetry 94 L Intake & Output 05/23/18 05/24/18 05/24/18 18:59 06:59 18:59 Intake Total 646 / 646 Output Total 200 / 200 200 / 200 Balance 446 / 446 -200 / -200 Weight 83.915 kg Intake: IV 646 / 646 NS Inj 1,000 ML @ 50 mls/hr IV. 646 / 646 CONT .Q20H [facility] Rx#:[id number] Output: Urine 200 / 200 200 / 200 Other: # Voids 3 1 Date of Last Bowel Movement 05/23/18 Weight On Admission 83 kg Narrative: GENERAL: NAD SKIN: Warm and dry. HEAD: Atraumatic. Normocephalic. EYES: Pupils equal and round. No scleral icterus. No injection or drainage. ENT: No nasal bleeding or discharge. Mucous membranes pink and moist. NECK: Trachea midline. No JVD. CARDIOVASCULAR: Regular rate and rhythm. RESPIRATORY: No accessory muscle use. Clear to auscultation. Breath sounds equal bilaterally. GASTROINTESTINAL: Abdomen soft, non-tender, nondistended. Hepatic and splenic margins not palpable. MUSCULOSKELETAL: Extremities without clubbing, cyanosis, or edema. No obvious deformities. NEUROLOGICAL: Awake and alert. No obvious cranial nerve deficits. Motor grossly within normal limits. Five out of 5 muscle strength in the arms and legs. Normal speech. PSYCHIATRIC: Appropriate mood and affect; insight and judgment normal. Results Labs CBC & Chem 7: 05/24/18 05:14 05/24/18 05:14 Imaging Imaging: Impressions Abdomen/Pelvis CT 05/23/18 12:03 CONCLUSION: No evidence of acute abdominal or pelvic process. No masses are identified. 4.5 cm abdominal aortic aneurysm. CT angiography of the abdominal aorta and lower extremities is recommended for further evaluation if clinically indicated. Diverticulosis without evidence of diverticulitis. Assessment and Plan Plan 87-year-old man with Acute GI bleeding Episode of bright red blood per rectum times 3 days prior to admission GI has been consulted and plan for colonoscopy today May 24, 2018 Continue PPI IV daily, n.p.o. 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
[2018-05-24] MEDS: Sod Chloride 0.9% Inj 1,000 ML IV.CONT SCH (10:26)
[2018-05-24] MEDS ORDERED: Lidocaine PF 1% Inj 5 ML Syringe INFILTRATN ONE (15:38)
--- NOTE | 2018-05-24 16:10 | P.PCN ---
Date of procedure: 05/24/18 Pre-op diagnosis: Rectal bleeding Procedure: PROCEDURE PERFORMED Colonoscopy with biopsies PROCEDURE: The procedure, risks and benefits were discussed with Patient/POA and informed consent was obtained. Anesthesia sedated Patient with Diprivan. Patient was placed in the left lateral decubitus position. Colonoscopy: The Pentax videoscope was introduced through the rectum and advanced to cecum where the ileocecal valve and appendiceal orifice were identified. Retroflexion was performed in the rectum. Colonic prep was fair FINDINGS: Colonic withdrawal time greater than 6 minutes. As the scope was slowly withdrawn colonic mucosa was carefully inspected patient was noted to have a rectal mass intermediate circumferential friable consistent with a probable rectal cancer about 12 cm from the anal verge multiple biopsies were taken also patient was noted to have severe diverticulosis of the sigmoid region in addition to scattered sigmoid throughout the colon retroflexion was unremarkable and so is rectal examination ESTIMATED BLOOD LOSS: None SPECIMENS REMOVED: Rectal mass COMPLICATIONS: None IMPRESSION: Rectal mass probable rectal cancer Diverticulosis PLAN: Await biopsies Consider imaging with contrast to further evaluate for metastases but we will await improvement in renal function Will obtain tumor marker Will need colorectal surgery evaluation first we will discuss with the patient and his son Anesthesia: MAC Surgeon: Dc Cabrera Condition: stable Disposition: floor
[2018-05-24] MEDS ORDERED: Metoprolol Tartrate 25 MG Tablet PO ONE (16:20)
[2018-05-24] MEDS ORDERED: Chlorhexidine Gluconate 2% 1 Pack (2 Cloths) TOPICAL ONE (16:20)
--- NOTE | 2018-05-24 16:54 | P.PNIM ---
Patient underwent colonoscopy with finding of rectal mass probable rectal cancer , which will require consultation from colorectal surgery for further evaluation. Therefore will change patient's current admission to full inpatient. Continue to monitor H&H and check tumor markers
[2018-05-24] MEDS ORDERED: Sodium Chlor 0.9% Inj 500 ML IV.SIG SCH (17:00)
[2018-05-25] MEDS: Sod Chloride 0.9% Inj 1,000 ML IV.CONT SCH ×2 (06:06→06:45)
[2018-05-25 06:23] LABS: Hematocrit 38.5 % (39.0-51.0); Hemoglobin 12.3 gm/dL (13.0-17.0); Mean Corpuscular Hemoglobin 26.3 pg (27.0-34.0); Mean Platelet Volume 10.5 fL (7.0-11.0); Platelet Count 119 th/mm3 (150-450); Red Cell Distribution Width 16.6 % (11.6-17.2); White Blood Count 5.3 th/mm3 (4.0-11.0)
[2018-05-25 06:53] LABS: Albumin 2.9 g/dL (3.4-5.0); Anion Gap 10 meq/L (5-15); Aspartate Aminotransferase 13 U/L (15-37); Blood Urea Nitrogen 24 mg/dL (7-18); Calcium 8.6 mg/dL (8.5-10.1); Carbon Dioxide 25.5 meq/L (21.0-32.0); Chloride 101 meq/L (98-107); Glomerular Filtration Rate 40 mL/min (>89); Glucose,Random 81 mg/dL (74-106); Potassium 4.6 meq/L (3.5-5.1); Sodium 136 meq/L (136-145)
[2018-05-25 06:57] LABS: Alanine Aminotransferase 11 U/L (12-78); Alkaline Phosphatase 85 U/L (45-117); Total Protein 6.7 g/dL (6.4-8.2)
[2018-05-25] MEDS: Sulfamethoxazole/Trimethoprim 400/80 MG Tablet PO SCH ×2 (08:59→20:02)
[2018-05-25] MEDS: Pantoprazole Inj 40 MG Vial IV.PUSH SCH (08:59)
[2018-05-25] MEDS: amLODIPine 5 MG Tablet PO SCH (08:59)
[2018-05-25] MEDS: Furosemide 20 MG Tablet PO SCH (08:59)
[2018-05-25] MEDS: Spironolactone 25 MG Tablet PO SCH (08:59)
--- NOTE | 2018-05-25 11:19 | P.PNIM ---
Subjective Interval history: Follow up for GIB, rectal mass, LISA on CKD: Patient seen and examined, somnolent, awakes to voice. Not talking very much. Was seen by colorectal surgeon, does not recall much of the conversation. No rectal bleeding noted, no nausea, no vomiting. No chest pain, shortness of breath. Has dressings to both feet, states that they were done approximately a week ago. Sees specification writer as outpatient. He is okay for me to speak to son regarding his discharge plan. Physical Exam Vital signs: Vital Signs 05/24/18 12:00 05/24/18 15:28 05/24/18 16:10 Temperature 97.5 F L 97.5 F L 98.8 F Pulse Rate 72 72 70 Respiratory Rate 20 16 14 Blood Pressure 126/69 126/70 100/49 L Pulse Oximetry 93 L 94 L 100 05/24/18 16:28 05/24/18 16:40 05/24/18 20:20 Temperature 97.8 F Pulse Rate 75 69 78 Respiratory Rate 14 14 20 Blood Pressure 106/51 L 119/60 143/68 H Pulse Oximetry 97 97 97 05/25/18 00:00 05/25/18 08:00 Temperature 99.0 F 98 F Pulse Rate 80 78 Respiratory Rate 20 16 Blood Pressure 149/68 H 141/80 H Pulse Oximetry 96 96 Intake & Output 05/24/18 05/25/18 05/25/18 18:59 06:59 18:59 Intake Total 1600 / 1600 1000 / 1000 Output Total 200 / 200 250 / 250 Balance 1400 / 1400 750 / 750 Weight 78.5 kg Intake: IV 1000 / 1000 1000 / 1000 NS Inj 1,000 ML @ 50 mls/hr IV. 1000 / 1000 1000 / 1000 CONT .Q20H [facility] Rx#:[id number] Oral 0 / 0 Anesthesia Amount 600 / 600 Output: Urine 200 / 200 250 / 250 Other: # Voids 0 Date of Last Bowel Movement 05/23/18 Narrative: GENERAL:87-year-old elderly male, no apparent distress SKIN: Warm and dry. HEAD: Atraumatic. Normocephalic. EYES: Pupils equal and round. No scleral icterus. No injection or drainage. ENT: No nasal bleeding or discharge. Mucous membranes pink and moist. NECK: Trachea midline. No JVD. CARDIOVASCULAR: S1-S2, irregular, no murmurs, no rubs, no gallops RESPIRATORY: No accessory muscle use. Clear to auscultation. Breath sounds equal bilaterally. GASTROINTESTINAL: Abdomen soft, non-tender, nondistended. Hepatic and splenic margins not palpable. MUSCULOSKELETAL: Extremities without clubbing, cyanosis, or edema. No obvious deformities. NEUROLOGICAL: Awakes to voice, oriented x3. Not very talkative. No focal deficits. No obvious cranial nerve deficits. Motor grossly within normal limits. Five out of 5 muscle strength in the arms and legs. Normal speech. PSYCHIATRIC: Flat affect Results Labs CBC & Chem 7: 05/25/18 04:59 05/25/18 04:59 Procedures Procedures: -S/P colonoscopy with bx 05/24-Rectal mass probable rectal cancer, diverticulosis Assessment and Plan Plan 87-year-old man presented to emergency room with history of 3 days of rectal bleeding, on Plavix. Acute GI bleeding Episode of bright red blood per rectum times 3 days prior to admission -GI has been consulted, input appreciated -Continue PPI, change to PO -Hold Plavix -S/P colonoscopy with bx 05/24-Rectal mass probable rectal cancer, diverticulosis. Imaging recommended when creat. improved -Tumor markers done, CEA 2.8 -Colorectal surgery evaluation, patient seen by Dr. Moore today. Pt. ok follow- up as outpatient with Dr. Olea. 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 -creat improving, creat 2.0>>1.60>>1.65 Recent toe amputations bilat feet, Right hallus bone shaving and left foot second toe 05/14. Has dressing changes done weekly per surgeon, Dr. العراقي. -f/u podiatry, has appointment set up. -Keep dressings dry and intact, if pt. still here by next week, will contact Dr. Vazquez for dressing changes. Afib, HR well controlled Unclear if he has hx, per son, hx of bradycardia, has PPM Pt. sees Dr. Cole. -12 lead EKG done 05/23-afib -Continue carvedilol -cont. telemetry will be ordered DVT prophylaxis: Chemical anti-prophylaxis contraindicated secondary to active GI bleed GI prophylaxis: PPI PT eval Labs in am D/W son at length, he wants to speak to Dr. Cabrera regarding f/u CT abd. Wants to speak to Dr. Moore as well as pt. doesn't recall much of conversation. Pt. not ready for dc yet until GI evaluates. Code Status: Full code Discussed Condition With: RN, pt/son/, CM Dr. Daryn Moore GI PA, Shannon Jordan Discharge Planning: Not ready yet, waiting for GI input Progress Note: Quality VTE Deep Vein Thrombosis/Pulmonary Embolism Present on Admission: No
--- NOTE | 2018-05-25 12:43 | US ---
EXAM DATE: 05/25/2018 12:40 PM EST AGE/SEX: 87 years / Male INDICATIONS: Increased BUN and creatinine. CLINICAL DATA: This is the patient's initial encounter. Patient reports that signs and symptoms have been present for 1 day and indicates a pain score of 0/10. MEDICAL/SURGICAL HISTORY: Congestive heart failure. Cerebrovascular disease. Hypertension. L eft eye blindness. Left ear deafness. Pacemaker. Total knee replacement, left. Right nephrectomy. Hammer toe correction. Amputation of the lesser toe. COMPARISON: [facility], CT ABDOMEN & PELVIS W/O CONTRAST, 05/23/2018. . MEASUREMENTS: Right Kidney:__n/a Surgically absent. Left Kidney:__13.8 x 5.7 x 4.8 cm FINDINGS: Right Kidney: Surgically absent. Left Kidney: Normal sized kidney with 2 cysts in the upper pole, 2.2 cm and 2.8 cm respectively. No h ydronephrosis. Bladder: Within normal limits given the degree of distension. Other: No ascites CONCLUSION: 1. Surgically absent right kidney 2. Normal-appearing left kidney with 2 cysts in the upper pole. There is no hydronephrosis Electronically signed by: Sudhir Lugo MD Board Certified Radiologist 05/25/2018 12:42 PM EST
--- NOTE | 2018-05-25 13:54 | P.PN ---
Subjective Interval history: newly dx rectal cancer no further bleeding CT wo iv contrast neg Cr 1.6 Plan: repeat CT with 1/2 dose iv contrast. IV fluid today Physical Exam Vital signs: Vital Signs 05/24/18 15:28 05/24/18 16:10 05/24/18 16:28 Temperature 97.5 F L 98.8 F Pulse Rate 72 70 75 Respiratory Rate 16 14 14 Blood Pressure 126/70 100/49 L 106/51 L Pulse Oximetry 94 L 100 97 05/24/18 16:40 05/24/18 20:20 05/25/18 00:00 Temperature 97.8 F 99.0 F Pulse Rate 69 78 80 Respiratory Rate 14 20 20 Blood Pressure 119/60 143/68 H 149/68 H Pulse Oximetry 97 97 96 05/25/18 08:00 05/25/18 12:00 Temperature 98 F 98.2 F Pulse Rate 78 76 Respiratory Rate 16 Blood Pressure 141/80 H 133/61 Pulse Oximetry 96 94 L Intake & Output 05/24/18 05/25/18 05/25/18 18:59 06:59 18:59 Intake Total 1600 / 1600 1000 / 1000 Output Total 200 / 200 250 / 250 Balance 1400 / 1400 750 / 750 Weight 78.5 kg Intake: IV 1000 / 1000 1000 / 1000 NS Inj 1,000 ML @ 50 mls/hr IV. 1000 / 1000 1000 / 1000 CONT .Q20H [facility] Rx#:[id number] Oral 0 / 0 Anesthesia Amount 600 / 600 Output: Urine 200 / 200 250 / 250 Other: # Voids 0 Date of Last Bowel Movement 05/23/18 Results - Labs CBC & Chem 7: 05/25/18 04:59 05/25/18 04:59 Laboratory Results - last 24 hr 05/24/18 05/25/18 05/25/18 17:05 04:59 04:59 WBC 5.3 RBC 4.70 Hgb 12.3 L Hct 38.5 L MCV 82.0 MCH 26.3 L MCHC 32.0 RDW 16.6 Plt Count 119 L MPV 10.5 Sodium 136 Potassium 4.6 Chloride 101 Carbon Dioxide 25.5 Anion Gap 10 BUN 24 H Creatinine 1.65 H Estimated GFR 40 L Random Glucose 81 Calcium 8.6 Total Bilirubin 0.6 AST 13 L ALT 11 L Alkaline Phosphatase 85 Total Protein 6.7 D Albumin 2.9 L D Carcinoembryonic Ag 2.8 - Imaging Impressions Abdomen/Bladder Ultrasound 05/25/18 00:00 CONCLUSION: 1. Surgically absent right kidney 2. Normal-appearing left kidney with 2 cysts in the upper pole. There is no hydronephrosis - Procedures -S/P colonoscopy with bx 05/24-Rectal mass probable rectal cancer, diverticulosis
[2018-05-25] MEDS: KCL 20 mEq/D5W/NaCl 0.45% Inj 1,000 ML IV.CONT SCH (14:35)
--- NOTE | 2018-05-25 23:11 | P.PNGI ---
Subjective Interval history: Laying comfortably in bed complains of lower extremity pain Physical Exam Vital signs: Vital Signs 05/25/18 00:00 05/25/18 08:00 05/25/18 12:00 Temperature 99.0 F 98 F 98.2 F Pulse Rate 80 78 76 Respiratory Rate 20 16 Blood Pressure 149/68 H 141/80 H 133/61 Pulse Oximetry 96 96 94 L 05/25/18 16:00 05/25/18 20:00 Temperature 98.7 F 98.6 F Pulse Rate 72 77 Respiratory Rate 16 24 Blood Pressure 137/63 139/63 Pulse Oximetry 96 95 Intake & Output 05/25/18 05/25/18 05/26/18 06:59 18:59 06:59 Intake Total 1000 / 1000 280 / 280 600 / 600 Output Total 250 / 250 400 / 400 Balance 750 / 750 -120 / -120 600 / 600 Weight 78.5 kg Intake: IV 1000 / 1000 600 / 600 NS Inj 1,000 ML @ 50 mls/hr IV. 1000 / 1000 300 / 300 CONT .Q20H [facility] Rx#:[id number] LR 1000 mL Inj 1,000 ML @ 30 300 / 300 mls/hr IV.SIG .Q24H [facility] Rx#: [id number] Oral 280 / 280 Output: Urine 250 / 250 400 / 400 Other: Date of Last Bowel Movement 05/23/18 05/23/18 - Constitutional no acute distress - Routine HEENT Exam Head: Present: normocephalic Eye: Present: EOMI ENT: Present: mucous membranes moist - Routine Neck Exam Present: supple - Routine Respiratory Exam Present: CTA bilaterally. Absent: accessory muscle use - Routine Cardiovascular Exam Present: RRR - Routine Abdominal Exam Present: soft, normoactive bowel sounds. Absent: tenderness, distended, rebound - Routine Extremities Exam Absent: cyanosis, clubbing Comments: Toe amputations noted Results - Labs CBC & Chem 7: 05/25/18 04:59 05/25/18 04:59 Laboratory Results - last 24 hr 05/25/18 05/25/18 04:59 04:59 WBC 5.3 RBC 4.70 Hgb 12.3 L Hct 38.5 L MCV 82.0 MCH 26.3 L MCHC 32.0 RDW 16.6 Plt Count 119 L MPV 10.5 Sodium 136 Potassium 4.6 Chloride 101 Carbon Dioxide 25.5 Anion Gap 10 BUN 24 H Creatinine 1.65 H Estimated GFR 40 L Random Glucose 81 Calcium 8.6 Total Bilirubin 0.6 AST 13 L ALT 11 L Alkaline Phosphatase 85 Total Protein 6.7 D Albumin 2.9 L D - Imaging Impressions Abdomen/Bladder Ultrasound 05/25/18 00:00 CONCLUSION: 1. Surgically absent right kidney 2. Normal-appearing left kidney with 2 cysts in the upper pole. There is no hydronephrosis - Procedures -S/P colonoscopy with bx 05/24-Rectal mass probable rectal cancer, diverticulosis Assessment and Plan - Plan Rectal bleeding from rectal cancer Acute renal injury somewhat improved with hydration Currently no active bleeding and the patient appears to be hemodynamically stable Await contrasted CT for evaluation of metastases In the meanwhile continue with current supportive care Monitor labs and transfuse as needed Further recommendations as per the colorectal surgical team
[2018-05-26] MEDS: KCL 20 mEq/D5W/NaCl 0.45% Inj 1,000 ML IV.CONT SCH ×3 (01:05→20:42)
[2018-05-26 05:50] LABS: Hematocrit 35.1 % (39.0-51.0); Hemoglobin 11.1 gm/dL (13.0-17.0); Mean Corpuscular HGB Conc 31.5 % (32.0-36.0); Mean Corpuscular Hemoglobin 25.4 pg (27.0-34.0); Mean Corpuscular Volume 80.7 fL (80.0-100.0); Mean Platelet Volume 10.4 fL (7.0-11.0); Platelet Count 115 th/mm3 (150-450); Red Blood Count 4.35 mil/mm3 (4.50-5.90); Red Cell Distribution Width 17.1 % (11.6-17.2); White Blood Count 5.8 th/mm3 (4.0-11.0)
[2018-05-26 06:20] LABS: Calcium 7.7 mg/dL (8.5-10.1); Carbon Dioxide 25.6 meq/L (21.0-32.0); Potassium 4.6 meq/L (3.5-5.1)
--- NOTE | 2018-05-26 08:47 | CT ---
EXAM DATE: 05/26/2018 8:37 AM EST AGE/SEX: 87 years / Male INDICATIONS: Rectal bleeding, evaluate for metastatic disease. CLINICAL DATA: This is the patient's initial encounter. Patient reports that signs and symptoms have been present for 1 day and indicates a pain score of 0/10. MEDICAL/SURGICAL HISTORY: Hypertension. Pacemaker. RADIATION DOSE: 17.26 CTDI (mGy) ; Combined studies COMPARISON: [facility], CT CHEST W/O CONTRAST, 06/15/2016. . TECHNIQUE: Multiple contiguous axial images were obtained through the chest during bolus infusion of 97 ml Omnipaque 350 (iohexol) nonionic water-soluble contrast as a cumulative dose for multiple exa ms. Images were obtained in suspended respiration using multiple row detector helical technique. U sing automated exposure control and adjustment of the mA and/or kV according to patient size, radiati on dose was kept as low as reasonably achievable to obtain optimal diagnostic quality images. DICOM format image data is available electronically for review and comparison. FINDINGS: There is cardiomegaly without pericardial effusion. Mild interstitial edema is present with trace bilateral pleural effusions. Pacer left chest No evidence for parenchymal metastatic disease There is no mediastinal adenopathy. There is no axillary adenopathy Review of bone windows reveals only degenerative changes. Upper abdominal contents visualized are grossly unremarkable. CONCLUSION: 1. Moderate compensated cardiomegaly without parenchymal metastatic disease Electronically signed by: Sudhir Lugo MD Board Certified Radiologist 05/26/2018 8:45 AM EST
--- NOTE | 2018-05-26 08:51 | CT ---
EXAM DATE: 05/26/2018 8:36 AM EST AGE/SEX: 87 years / Male INDICATIONS: Rectal bleeding, evaluate for metastatic disease. CLINICAL DATA: This is the patient's initial encounter. Patient reports that signs and symptoms have been present for 1 day and indicates a pain score of 0/10. MEDICAL/SURGICAL HISTORY: Hypertension. Pacemaker. ORAL CONTRAST: No oral contrast ingested. RADIATION DOSE: 17.26 CTDI (mGy) ; Combined studies COMPARISON: [facility], CT ABDOMEN & PELVIS W/O CONTRAST, 05/23/2018. . TECHNIQUE: Multiple contiguous axial images were obtained through the abdomen and pelvis following b olus infusion of 97 ml Omnipaque 350 (iohexol) nonionic water-soluble contrast as a cumulative dose for multiple exams. No oral contrast ingested. Using automated exposure control and adjustment of t he mA and/or kV according to patient size, radiation dose was kept as low as reasonably achievable to obtain optimal diagnostic quality images. DICOM format image data is available electronically for r eview and comparison. FINDINGS: Trace small pleural effusions are evident. There is no evidence for metastatic disease to the liver. There is minimal reflux into the hepatic veins suggesting right heart failure Gallbladder, pancreas and spleen are unremarkable Adrenal glands appear normal Right kidney is not visualized. Multiple cysts are seen in the left kidney without mass or stone. 4.4 cm infrarenal abdominal aortic aneurysm extensive aortic iliac disease. There is no retroperitoneal adenopathy. In the pelvis there is bowel wall thickening in the rectum probably at site of known primary. There i s no obturator adenopathy. There is no inguinal adenopathy. Bladder prostate and seminal vesicles unr emarkable Review of bone windows reveals extensive degenerative changes in the thoracolumbar spine without bony metastatic disease. CONCLUSION: 1. I don't see evidence for metastatic disease. 2. There is no suspicious adenopathy 3. 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 Electronically signed by: Sudhir Lugo MD Board Certified Radiologist 05/26/2018 8:49 AM EST
[2018-05-26] MEDS: Sulfamethoxazole/Trimethoprim 400/80 MG Tablet PO SCH ×2 (09:06→20:42)
[2018-05-26] MEDS: amLODIPine 5 MG Tablet PO SCH (09:07)
[2018-05-26] MEDS: Furosemide 20 MG Tablet PO SCH (09:07)
[2018-05-26] MEDS: Spironolactone 25 MG Tablet PO SCH (09:07)
--- NOTE | 2018-05-26 10:10 | P.PN ---
Subjective Interval history: no bleeding HGB11 CT C/A/P no mets P: Dr Olea to see tomorrow Physical Exam Vital signs: Vital Signs 05/25/18 12:00 05/25/18 16:00 05/25/18 20:00 Temperature 98.2 F 98.7 F 98.6 F Pulse Rate 76 72 72 Respiratory Rate 16 24 Blood Pressure 133/61 137/63 139/63 Pulse Oximetry 94 L 96 95 05/26/18 00:00 05/26/18 04:00 05/26/18 08:00 Temperature 98.1 F 97.9 F 97.3 F L Pulse Rate 75 76 78 Respiratory Rate 20 22 16 Blood Pressure 130/60 143/63 H 143/70 H Pulse Oximetry 96 96 95 Intake & Output 05/25/18 05/26/18 05/26/18 18:59 06:59 18:59 Intake Total 280 / 280 1840 / 1840 Output Total 400 / 400 Balance -120 / -120 1840 / 1840 Intake: IV 1600 / 1600 D5W/1/2NS + KCL 20 mEq Inj 1, 1000 / 1000 000 ML @ 100 mls/hr IV.CONT . Q10H MC Rx#:[id number] NS Inj 1,000 ML @ 50 mls/hr IV. 300 / 300 CONT .Q20H MC Rx#:[id number] LR 1000 mL Inj 1,000 ML @ 30 300 / 300 mls/hr IV.SIG .Q24H MC Rx#: [id number] Oral 280 / 280 240 / 240 Output: Urine 400 / 400 Other: # Voids 3 Date of Last Bowel Movement 05/23/18 Results - Labs CBC & Chem 7: 05/26/18 04:14 05/26/18 04:14 Laboratory Results - last 24 hr 05/26/18 05/26/18 04:14 04:14 WBC 5.8 RBC 4.35 L Hgb 11.1 L Hct 35.1 L MCV 80.7 MCH 25.4 L MCHC 31.5 L RDW 17.1 Plt Count 115 L MPV 10.4 Sodium 134 L Potassium 4.6 Chloride 101 Carbon Dioxide 25.6 Anion Gap 7 BUN 19 H Creatinine 1.49 H Estimated GFR 45 L Random Glucose 101 Calcium 7.7 L D - Imaging Impressions Abdomen/Bladder Ultrasound 05/25/18 00:00 CONCLUSION: 1. Surgically absent right kidney 2. Normal-appearing left kidney with 2 cysts in the upper pole. There is no hydronephrosis Abdomen/Pelvis CT 05/26/18 00:00 CONCLUSION: 1. I don't see evidence for metastatic disease. 2. There is no suspicious adenopathy 3. 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 Chest CT 05/26/18 00:00 CONCLUSION: 1. Moderate compensated cardiomegaly without parenchymal metastatic disease - Procedures -S/P colonoscopy with bx 05/24-Rectal mass probable rectal cancer, diverticulosis
--- NOTE | 2018-05-26 10:16 | P.PNIM ---
Subjective Interval history: Follow up for GIB, rectal mass, LISA on CKD: Patient seen and examined, awakes to voice, oriented x 3. Flat affect. No abd pain, no n/v. No rectal bleeding noted. No fever. Tele reviewed, paced, afib, one episode 5 beats NSVT. No cp, no sob. Physical Exam Vital signs: Vital Signs 05/25/18 12:00 05/25/18 16:00 05/25/18 20:00 Temperature 98.2 F 98.7 F 98.6 F Pulse Rate 76 72 72 Respiratory Rate 16 24 Blood Pressure 133/61 137/63 139/63 Pulse Oximetry 94 L 96 95 05/26/18 00:00 05/26/18 04:00 05/26/18 08:00 Temperature 98.1 F 97.9 F 97.3 F L Pulse Rate 75 76 78 Respiratory Rate 20 22 16 Blood Pressure 130/60 143/63 H 143/70 H Pulse Oximetry 96 96 95 Intake & Output 05/25/18 05/26/18 05/26/18 18:59 06:59 18:59 Intake Total 280 / 280 1840 / 1840 Output Total 400 / 400 Balance -120 / -120 1840 / 1840 Intake: IV 1600 / 1600 D5W/1/2NS + KCL 20 mEq Inj 1, 1000 / 1000 000 ML @ 100 mls/hr IV.CONT . Q10H MC Rx#:[id number] NS Inj 1,000 ML @ 50 mls/hr IV. 300 / 300 CONT .Q20H MC Rx#:[id number] LR 1000 mL Inj 1,000 ML @ 30 300 / 300 mls/hr IV.SIG .Q24H MC Rx#: [id number] Oral 280 / 280 240 / 240 Output: Urine 400 / 400 Other: # Voids 3 Date of Last Bowel Movement 05/23/18 Narrative: GENERAL:87-year-old elderly male, no apparent distress SKIN: Warm and dry. HEAD: Atraumatic. Normocephalic. EYES: Pupils equal and round. No scleral icterus. No injection or drainage. ENT: No nasal bleeding or discharge. Mucous membranes pink and moist. NECK: Trachea midline. No JVD. CARDIOVASCULAR: S1-S2, irregular, no murmurs, no rubs, no gallops RESPIRATORY: No accessory muscle use. Clear to auscultation. Breath sounds equal bilaterally. GASTROINTESTINAL: Abdomen soft, non-tender, nondistended. Hepatic and splenic margins not palpable. MUSCULOSKELETAL: Extremities without clubbing, cyanosis, or edema. No obvious deformities. NEUROLOGICAL: Awakes to voice, oriented x3. Not very talkative. No focal deficits. No obvious cranial nerve deficits. Motor grossly within normal limits. Five out of 5 muscle strength in the arms and legs. Normal speech. PSYCHIATRIC: Flat affect Results Labs CBC & Chem 7: 05/26/18 04:14 05/26/18 04:14 Imaging Imaging: Impressions Abdomen/Bladder Ultrasound 05/25/18 00:00 CONCLUSION: 1. Surgically absent right kidney 2. Normal-appearing left kidney with 2 cysts in the upper pole. There is no hydronephrosis Abdomen/Pelvis CT 05/26/18 00:00 CONCLUSION: 1. I don't see evidence for metastatic disease. 2. There is no suspicious adenopathy 3. 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 Chest CT 05/26/18 00:00 CONCLUSION: 1. Moderate compensated cardiomegaly without parenchymal metastatic disease Procedures Procedures: -S/P colonoscopy with bx 2/22-Rectal mass probable rectal cancer, diverticulosis Assessment and Plan Plan 87-year-old man presented to emergency room with history of 3 days of rectal bleeding, on Plavix. Acute GI bleeding Episode of bright red blood per rectum times 3 days prior to admission -GI has been consulted, input appreciated -Continue PPI -Hold Plavix and ASA -S/P colonoscopy with bx 2/22-Rectal mass probable rectal cancer, diverticulosis. Imaging recommended when creat. improved -Tumor markers done, CEA 2.8 -Colorectal surgery evaluation, patient seen by Dr. Moore today. -H&H stable, 12.3/38.5 -no active rectal bleeding -regular diet -CT abd and chest done with contrast, results reviewed, no mets. Per Dr. Moore , Dr. 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 -creat improving, creat 2.0>>1.60>>1.65>>1.49 CT findings of 4.4 cm infrarenal AA with extensive aortoiliac disease -control bp for now Recent toe amputations bilat feet, Right hallus bone shaving and left foot second toe 05/14. Has dressing changes done weekly per surgeon, Dr. العراقي. -f/u podiatry, has appointment set up. -Keep dressings dry and intact, if pt. still here by next week, will contact Dr. العراقي for dressing changes. Afib, HR well controlled Unclear if he has hx, per son, hx of bradycardia, has PPM Pt. sees Dr. Cole. -12 lead EKG done 05/23-afib -Continue carvedilol -cont. telemetry ordered -short episodes of NSVT, 5 beats, Mg and BMP DVT prophylaxis: Chemical anti-prophylaxis contraindicated secondary to active GI bleed GI prophylaxis: PPI Labs in am Dr. Olea to f/u tomorrow and make decisions regarding surgery if any Pt. will need cardiac clearance prior to surgery if any, will wait from CRS before consulting cardiology Code Status: Full code Discussed Condition With: RN, pt, CM Dr. Stearns Discharge Planning: Not ready yet, waiting for colorectal surgery input Progress Note: Quality VTE Deep Vein Thrombosis/Pulmonary Embolism Present on Admission: No
--- NOTE | 2018-05-26 15:45 | P.PNGI ---
Subjective Interval history: Patient seen and examined. Resting comfortably in bed. Denies abdominal pain. States he is not eating because he is not hungry. Denies any bowel movements today. CT of chest abdomen and pelvis done today without any evidence of metastatic disease or suspicious lymphadenopathy. Labs stable. <Shannon Jordan - Last Filed: 05/26/18 15:38> Physical Exam Vital signs: Vital Signs 05/25/18 16:00 05/25/18 20:00 05/26/18 00:00 Temperature 98.7 F 98.6 F 98.1 F Pulse Rate 72 72 75 Respiratory Rate 16 24 20 Blood Pressure 137/63 139/63 130/60 Pulse Oximetry 96 95 96 05/26/18 04:00 05/26/18 08:00 05/26/18 12:00 Temperature 97.9 F 97.3 F L 97.9 F Pulse Rate 76 78 65 Respiratory Rate 22 16 17 Blood Pressure 143/63 H 143/70 H 130/59 L Pulse Oximetry 96 95 96 Intake & Output 05/25/18 05/26/18 05/26/18 18:59 06:59 18:59 Intake Total 280 / 280 1840 / 1840 1000 / 1000 Output Total 400 / 400 300 / 300 Balance -120 / -120 1840 / 1840 700 / 700 Intake: IV 1600 / 1600 1000 / 1000 D5W/1/2NS + KCL 20 mEq Inj 1, 1000 / 1000 1000 / 1000 000 ML @ 100 mls/hr IV.CONT . Q10H MC Rx#:[id number] NS Inj 1,000 ML @ 50 mls/hr IV. 300 / 300 CONT .Q20H MC Rx#:[id number] LR 1000 mL Inj 1,000 ML @ 30 300 / 300 mls/hr IV.SIG .Q24H MC Rx#: [id number] Oral 280 / 280 240 / 240 Output: Urine 400 / 400 300 / 300 Other: # Voids 3 Date of Last Bowel Movement 05/23/18 <Shannon Jordan - Last Filed: 05/26/18 15:38> Vital signs: Vital Signs 05/26/18 00:00 05/26/18 04:00 05/26/18 08:00 Temperature 98.1 F 97.9 F 97.3 F L Pulse Rate 75 76 78 Respiratory Rate 20 22 16 Blood Pressure 130/60 143/63 H 143/70 H Pulse Oximetry 96 96 95 05/26/18 12:00 05/26/18 16:00 Temperature 97.9 F 97.8 F Pulse Rate 65 69 Respiratory Rate 17 16 Blood Pressure 130/59 L 115/63 Pulse Oximetry 96 96 Intake & Output 05/26/18 05/26/18 05/27/18 06:59 18:59 06:59 Intake Total 1840 / 1840 1000 / 1000 1000 / 1000 Output Total 300 / 300 Balance 1840 / 1840 700 / 700 1000 / 1000 Intake: IV 1600 / 1600 1000 / 1000 1000 / 1000 D5W/1/2NS + KCL 20 mEq Inj 1, 1000 / 1000 1000 / 1000 1000 / 1000 000 ML @ 100 mls/hr IV.CONT . Q10H MC Rx#:[id number] NS Inj 1,000 ML @ 50 mls/hr IV. 300 / 300 CONT .Q20H MC Rx#:[id number] LR 1000 mL Inj 1,000 ML @ 30 300 / 300 mls/hr IV.SIG .Q24H MC Rx#: [id number] Oral 240 / 240 Output: Urine 300 / 300 Other: # Voids 3 1 Date of Last Bowel Movement 05/23/18 <Dc Cabrera E - Last Filed: 05/26/18 20:57> Results - Labs CBC & Chem 7: 05/26/18 04:14 05/26/18 04:14 Laboratory Results - last 24 hr 05/26/18 05/26/18 04:14 04:14 WBC 5.8 RBC 4.35 L Hgb 11.1 L Hct 35.1 L MCV 80.7 MCH 25.4 L MCHC 31.5 L RDW 17.1 Plt Count 115 L MPV 10.4 Sodium 134 L Potassium 4.6 Chloride 101 Carbon Dioxide 25.6 Anion Gap 7 BUN 19 H Creatinine 1.49 H Estimated GFR 45 L Random Glucose 101 Calcium 7.7 L D - Imaging Impressions Abdomen/Pelvis CT 05/26/18 00:00 CONCLUSION: 1. I don't see evidence for metastatic disease. 2. There is no suspicious adenopathy 3. 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 Chest CT 05/26/18 00:00 CONCLUSION: 1. Moderate compensated cardiomegaly without parenchymal metastatic disease - Procedures -S/P colonoscopy with bx 05/24-Rectal mass probable rectal cancer, diverticulosis <Shannon Jordan - Last Filed: 05/26/18 15:38> - Labs CBC & Chem 7: 05/26/18 04:14 05/26/18 04:14 Laboratory Results - last 24 hr 05/26/18 05/26/18 04:14 04:14 WBC 5.8 RBC 4.35 L Hgb 11.1 L Hct 35.1 L MCV 80.7 MCH 25.4 L MCHC 31.5 L RDW 17.1 Plt Count 115 L MPV 10.4 Sodium 134 L Potassium 4.6 Chloride 101 Carbon Dioxide 25.6 Anion Gap 7 BUN 19 H Creatinine 1.49 H Estimated GFR 45 L Random Glucose 101 Calcium 7.7 L D - Imaging Impressions Abdomen/Pelvis CT 05/26/18 00:00 CONCLUSION: 1. I don't see evidence for metastatic disease. 2. There is no suspicious adenopathy 3. 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 Chest CT 05/26/18 00:00 CONCLUSION: 1. Moderate compensated cardiomegaly without parenchymal metastatic disease <Dc Cabrera - Last Filed: 05/26/18 20:57> Assessment and Plan (1) Rectal bleeding Status: Acute Code(s): K62.5 - Hemorrhage of anus and rectum (2) Anemia due to GI blood loss Status: Acute Code(s): D50.0 - Iron deficiency anemia secondary to blood loss (chronic) - Plan 05/25/2018 Rectal bleeding from rectal cancer Acute renal injury somewhat improved with hydration Currently no active bleeding and the patient appears to be hemodynamically stable Await contrasted CT for evaluation of metastases In the meanwhile continue with current supportive care Monitor labs and transfuse as needed Further recommendations as per the colorectal surgical team 05/26/2018 Rectal bleeding from rectal cancer Acute renal injury somewhat improved with hydration Currently no active bleeding and the patient appears to be hemodynamically stable CT evaluation appears to be negative for metastasis Continue with current supportive care Monitor labs and transfuse as needed Further recommendations as per the colorectal surgical team Patient was seen and examined by myself and Dr. Cabrera and this note is written on his behalf <Shannon Jordan - Last Filed: 05/26/18 15:38> (1) Rectal bleeding Status: Acute Code(s): K62.5 - Hemorrhage of anus and rectum (2) Anemia due to GI blood loss Status: Acute Code(s): D50.0 - Iron deficiency anemia secondary to blood loss (chronic) - Attending Attestation Patient seen and examined Agree with above Continue with current supportive care Monitor labs CT of the abdomen and chest is unremarkable for metastases Further recommendations as per the colorectal surgical service Not much to add from a GI perspective we will sign off <Dc Cabrera E - Last Filed: 05/26/18 20:57>
[2018-05-27 04:39] LABS: Calcium 8.1 mg/dL (8.5-10.1); Carbon Dioxide 28.3 meq/L (21.0-32.0); Magnesium 1.9 mg/dL (1.5-2.5); Potassium 5.2 meq/L (3.5-5.1)
[2018-05-27] MEDS: KCL 20 mEq/D5W/NaCl 0.45% Inj 1,000 ML IV.CONT SCH (05:09)
--- NOTE | 2018-05-27 07:37 | MB ---
cc: Power Moore MD,Power Salazar, DATE: 05/25/2018 HISTORY OF PRESENT ILLNESS: This is an 87-year-old gentleman who was admitted to the hospital with lower GI bleeding. He was passing bright red blood, some small clots. The bleeding lasted approximately 24 hours. The bleeding has now stopped. He underwent colonoscopy per GI and likely cancer was identified in the upper rectum. The patient is otherwise in reasonably good health. He does live at home with his . He has had recent foot surgery. He has a history of CHF. He states he does get short of breath at times with minimal walking. 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 Denies smoking, drinking. His health is otherwise good. The patient did undergo CT scan that shows no evidence of metastatic disease. PHYSICAL EXAMINATION: GENERAL: He is alert, without distress. LUNGS: Respirations are normal. ABDOMEN: Soft and nontender without mass. RECTAL: I cannot palpate the tumor. The patient does have an irregular prostate nodule in the proximal aspect of the gland that is approximately 1.5 cm in size. ASSESSMENT: Rectal cancer without metastatic disease. PLAN: The patient may be discharged and return to the office this week for further treatment planning. The patient will need to discuss his overall health with his primary care physician and contact printer dry film. Will need CT with IV contrast. Power Moore MD DLM/ts , 09:39 AM , 09:47 AM [facility]
[2018-05-27] MEDS: Furosemide 20 MG Tablet PO SCH (09:42)
[2018-05-27] MEDS: amLODIPine 5 MG Tablet PO SCH (09:42)
--- NOTE | 2018-05-27 11:03 | P.PNIM ---
Subjective Interval history: Follow up for GIB, rectal mass, LISA on CKD: Patient seen and examined, more awake today, oriented x3. Eating well, has no complaints. No abdominal pain, no nausea, no vomiting, no rectal bleeding. Telemetry reviewed, paced and A. fib, no ectopy. Son at bedside waiting to speak to Dr. Olea. 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 Physical Exam Vital signs: Vital Signs 05/26/18 12:00 05/26/18 16:00 05/26/18 20:00 Temperature 97.9 F 97.8 F 97.7 F Pulse Rate 65 69 79 Respiratory Rate 17 16 22 Blood Pressure 130/59 L 115/63 130/70 Pulse Oximetry 96 96 95 05/27/18 00:00 05/27/18 04:00 05/27/18 08:00 Temperature 97.4 F L 97.5 F L 97.3 F L Pulse Rate 73 67 67 Respiratory Rate 18 20 21 Blood Pressure 122/70 130/65 135/63 Pulse Oximetry 96 96 96 Intake & Output 05/26/18 05/27/18 05/27/18 18:59 06:59 18:59 Intake Total 1000 / 1000 2240 / 2240 920 / 920 Output Total 300 / 300 1150 / 1150 200 / 200 Balance 700 / 700 1090 / 1090 720 / 720 Intake: IV 1000 / 1000 1999 / 1999 440 / 440 D5W/1/2NS + KCL 20 mEq Inj 1, 1000 / 1000 1999 / 1999 440 / 440 000 ML @ 100 mls/hr IV.CONT . Q10H MC Rx#:[id number] Oral 240 / 240 480 / 480 Output: Urine 300 / 300 1150 / 1150 200 / 200 Other: # Voids 1 Narrative: GENERAL:87-year-old elderly male, no apparent distress SKIN: Warm and dry. HEAD: Atraumatic. Normocephalic. EYES: Pupils equal and round. No scleral icterus. No injection or drainage. ENT: No nasal bleeding or discharge. Mucous membranes pink and moist. NECK: Trachea midline. No JVD. CARDIOVASCULAR: S1-S2, irregular, no murmurs, no rubs, no gallops RESPIRATORY: No accessory muscle use. Clear to auscultation. Breath sounds equal bilaterally. GASTROINTESTINAL: Abdomen soft, non-tender, nondistended. Hepatic and splenic margins not palpable. MUSCULOSKELETAL: Extremities without clubbing, cyanosis, or edema. No obvious deformities. NEUROLOGICAL: Awakes to voice, oriented x3. More talkative today. No focal deficits. No obvious cranial nerve deficits. Motor grossly within normal limits. Five out of 5 muscle strength in the arms and legs. Normal speech. PSYCHIATRIC: Flat affect Results Labs CBC & Chem 7: 05/26/18 04:14 05/27/18 04:05 Procedures Procedures: -S/P colonoscopy with bx 05/24-Rectal mass probable rectal cancer, diverticulosis Assessment and Plan (1) Rectal bleeding: Code(s): K62.5 - Hemorrhage of anus and rectum Status: Acute (2) Anemia due to GI blood loss: Code(s): D50.0 - Iron deficiency anemia secondary to blood loss (chronic) Status: Acute Plan 87-year-old man presented to emergency room with history of 3 days of rectal bleeding, on Plavix. Acute GI bleeding Episode of bright red blood per rectum times 3 days prior to admission -GI has been consulted, input appreciated -Continue PPI -Hold Plavix and ASA -S/P colonoscopy with bx 05/24-Rectal mass probable rectal cancer, diverticulosis. Imaging recommended when creat. improved -Tumor markers done, CEA 2.8 -Colorectal surgery evaluation, patient seen by Dr. Moore today. -H&H stable, 12.3/38.5 -no active rectal bleeding -regular diet -CT abd and chest done with contrast, results reviewed, no mets. Per Dr. Moore , Dr. 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 -creat improving, creat 2.0>>1.60>>1.65>>1.49>>1.47 Hyperkalemia, potassium 5.2 -Hold Aldactone, repeat BMP in the morning CT findings of 4.4 cm infrarenal AA with extensive aortoiliac disease -control bp for now Recent toe amputations bilat feet, Right hallus bone shaving and left foot second toe 05/14. Has dressing changes done weekly per surgeon, Dr. العراقي. -f/u podiatry, has appointment set up. -Keep dressings dry and intact, if pt. still here by next week, will contact Dr. العراقي for dressing changes. -Patient okay out of bed, left heel bearing only, full weightbearing on right. Afib, HR well controlled Unclear if he has hx, per son, hx of bradycardia, has PPM Pt. sees Dr. Cole. -12 lead EKG done 05/23-afib -Continue carvedilol -cont. telemetry ordered -short episodes of NSVT, 5 beats, Micro-K, potassium 5.2 No ectopy today, continue to monitor DVT prophylaxis: Chemical anti-prophylaxis contraindicated secondary to active GI bleed GI prophylaxis: PPI Labs in am Dr. Olea to f/u today and make decisions regarding surgery if any Discussed with patient and son, patient does not want any chemo/radiation but agreeable with surgery Pt. will need cardiac clearance prior to surgery if any, will wait from CRS before consulting cardiology Code Status: Full code Discussed Condition With: RN, pt, pt's son, CM Dr. Stearns Discharge Planning: Not ready yet, waiting for colorectal surgery input Progress Note: Quality VTE Deep Vein Thrombosis/Pulmonary Embolism Present on Admission: No
[2018-05-27 12:43] VITALS: RESP 20
[2018-05-27 16:50] VITALS: BP 120/58; PULSE 63; TEMP 98.3; O2SAT 97
--- NOTE | 2018-05-27 19:04 | P.CON ---
History of Present Illness Service: radiation oncology Requesting Physician: Jason Olea Primary Care Provider: Power Perez MD Chief Complaint: Bright red blood per rectum History of Present Illness: recent diagnosis rectal cancer upper rectum. Son present. 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 Hypertension - Surgical History Surgical History: Surgical History (Last Reviewed 05/25/18 @ 12:43 by Panfilo Hernandez) 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 Hx of hammer toe correction - Tobacco History Second Hand Smoke Exposure: No Tobacco Use In Past 30 Days: No Smoking Status: Never smoker - Alcohol History How Often Do You Have a Drink Containing Alcohol: Never - Substance Use History Substance History: No History of Abuse - Travel History Recent Travel in the [place] Within the Last 8 Weeks: No Recent Travel Out of the Country Within the Last 8 Weeks: No - Immunization History Tetanus Immunization: >5 Years Hx Influenza Vaccine This Season: Yes Medications and Allergies Active Medications: Active Medications Acetaminophen (Tylenol) 650 mg PO Q4H PRN PRN Reason: Temp > 100.4 Al Hydroxide/Mg Hydroxide (Milk Of Magnesia Liq) 30 ml PO Q12H PRN PRN Reason: Mild Constipation Amlodipine Besylate (Norvasc) 5 mg PO DAILY FORMERLY [facility], [facility]1983 Last Admin: 05/27/18 09:42 Dose: 5 mg Bisacodyl (Dulcolax Supp) 10 mg RECTAL DAILY PRN PRN Reason: SEVERE CONSITIPATION Carvedilol (Coreg) 3.125 mg PO BID FOR[facility]LY [facility], [facility]1983 Last Admin: 05/27/18 09:42 Dose: 3.125 mg Clonidine HCl (Catapres) 0.1 mg PO Q6H PRN PRN Reason: SBP>160, DBP>90 Furosemide (Lasix) 20 mg PO DAILY FOR[facility]LY [facility], [facility]1983 Last Admin: 05/27/18 09:42 Dose: 20 mg Lactulose (Lactulose Liq) 30 ml PO DAILY PRN PRN Reason: SEVERE CONSITIPATION Ondansetron HCl (Zofran Inj) 4 mg IV.PUSH Q6H PRN PRN Reason: NAUSEA OR VOMITING Oxycodone HCl (Roxicodone) 5 mg PO Q6H PRN PRN Reason: PAIN SCALE 1 TO 10 Last Admin: 05/27/18 18:54 Dose: 5 mg Pantoprazole Sodium (Protonix) 40 mg PO DAILY FOR[facility], [facility]1983 Last Admin: 05/27/18 09:42 Dose: 40 mg Sennosides (Senokot) 17.2 mg PO Q12H PRN PRN Reason: Moderate Constipation Sodium Chloride (Ns Flush) 2 ml IV.FLUSH PRN PRN PRN Reason: FLUSH AFTER USING IV ACCESS Sodium Chloride (Ns Flush) 2 ml IV.FLUSH BID FOR[facility]LY [facility], [facility] Last Admin: 05/27/18 09:42 Dose: 2 ml Spironolactone (Aldactone) 25 mg PO DAILY [facility] Last Admin: 05/26/18 09:07 Dose: 25 mg Allergies Allergy/AdvReac Type Severity Reaction Status Date / Time No Known Allergies Allergy Verified 05/23/18 12:04 Home Medications Medication Instructions Recorded Confirmed Type amlodipine 5 mg PO DAILY 05/23/18 05/23/18 History aspirin [Aspir-81] 81 mg PO DAILY 05/23/18 05/23/18 History carvedilol 3.125 mg PO DAILY 05/23/18 05/23/18 History furosemide 20 mg PO DAILY 05/23/18 05/23/18 History oxycodone 5 mg PO Q4-6H PRN 05/23/18 05/23/18 History spironolactone 25 mg PO DAILY 05/23/18 05/23/18 History sulfamethoxazole-trimethoprim 2 tab PO BID 05/23/18 05/23/18 History Physical Exam Vital signs: Vital Signs 05/26/18 20:00 05/27/18 00:00 05/27/18 04:00 Temperature 97.7 F 97.4 F L 97.5 F L Pulse Rate 79 73 67 Respiratory Rate 22 18 20 Blood Pressure 130/70 122/70 130/65 Pulse Oximetry 95 96 96 05/27/18 08:00 05/27/18 12:00 05/27/18 16:00 Temperature 97.3 F L 97.8 F 98.3 F Pulse Rate 67 76 63 Respiratory Rate 21 20 20 Blood Pressure 135/63 132/63 120/58 L Pulse Oximetry 96 996 H 97 Intake & Output 05/27/18 05/27/18 05/28/18 06:59 18:59 06:59 Intake Total 2240 / 2240 1640 / 1640 Output Total 1150 / 1150 800 / 800 Balance 1090 / 1090 840 / 840 Intake: IV 1999 440 / 440 D5W/1/2NS + KCL 20 mEq Inj , 1999 440 / 440 000 ML @ 100 mls/hr IV.CONT . Q10H [facility] Rx#:[id number] Oral 240 / 240 1200 / 1200 Output: Urine 1150 / 1150 800 / 800 Results - Labs CBC & Chem 7: 05/26/18 04:14 05/27/18 04:05 Labs: Laboratory Results - last 24 hr 05/27/18 04:05 Sodium 134 L Potassium 5.2 H Chloride 101 Carbon Dioxide 28.3 Anion Gap 5 BUN 19 H Creatinine 1.47 H Estimated GFR 45 L Random Glucose 106 Calcium 8.1 L Magnesium 1.9 Assessment and Plan - Plan we discussed neoadjuvant xrt. Patient prefers re-eval next sunday. we will schedule.,
--- NOTE | 2018-05-27 22:39 | P.PNCS ---
Subjective Interval history: afebrile, VSS UO good no BRB Objective Result Diagrams: 05/26/18 04:14 05/27/18 04:05 Objective Remarks: PE alert Abd - soft, no tympany, no mass Assessment and Plan - Plan Imp: stable, Bx pending reviewed CT - no mets weak, +weight loss reviewed with pt/family - recommended considering RT to tumor to shrink the tumor before considering surgery pt not in favor of chemo at all will ask RT to see pt , then plan DC home, RTO 1 week
--- NOTE | 2018-05-28 07:41 | P.DS ---
DS: Providers Date of admission: 05/24/18 16:55 Primary care physician: Power Perez MD Consults: 05/23/18 19:37 Consult to Gastroenterology Routine Consulting Provider: Dc Cabrera Reason for Consultation: Case was discussed by ER doctor with Dr. Cabrera per notes; colonoscopy recommended in a.m. - patient currently undergoing golytely prep for gi bleed Notified:: Service Spoke with:: Ana Date Notified:: 05/23/18 Time Notified:: 20:05 Ordering Provider: MARTHA 05/24/18 16:55 Consult to Colorectal Surgery Routine Consulting Provider: Power Moore Reason for Consultation: 87 yrs old man Admitted with acute GI bleed and underwent colonoscopy on May 24, 2018 with finding of rectal mass probable rectal cancer, please evaluate and advise for therapy Notified:: Service Spoke with:: BRIANNA Date Notified:: 05/24/18 Time Notified:: 17:19 Ordering Provider: KETURAH 05/27/18 18:01 Consult to Radiation Oncology Routine Consulting Provider: Carlos Manuel Grigsby Cmo & President:: Carlos Manuel Grigsby Patient known to:: Carlos Manuel Grigsby Reason for Consultation: rectal cancer Notified:: Service Spoke with:: Yahir Date Notified:: 05/27/18 Time Notified:: 18:05 Ordering Provider: MARIAM Attending physician on discharge: Denis Stearns Anticipated date of discharge: 05/27/18 Brief History from admission: 87-year-old male who past medical history of CHF, CAD, hypertension came to the ED for evaluation of 3-day history of bright red blood per rectum without any associated abdominal pain. Denies any hemoptysis, hematuria. Patient's on Plavix. H&H was stable in the ED not requiring any blood transfusion. Gastroenterology was consulted for evaluation for colonoscopy. Patient denies any chest pain or shortness of breath. Vitals are unremarkable. DS: Diagnosis Discharge Diagnosis (1) Rectal bleeding: Status: Acute (2) Anemia due to GI blood loss: Status: Acute DS: Summary 87-year-old man presented to emergency room with history of 3 days of rectal bleeding, on Plavix. Initially presented to [facility], [place]. GI consulted and did colonoscopy. Requested transfer to main hospital for evaluation by colorectal surgeon. Acute GI bleeding Episode of bright red blood per rectum times 3 days prior to admission -GI was consulted, input appreciated -Put on PPI -Hedld Plavix and ASA -S/P colonoscopy with bx 05/24-Rectal mass probable rectal cancer, diverticulosis. Imaging recommended when creat. improved. Transferred to main hospital for evaluation by colorectal surgeon -Tumor markers done, CEA 2.8 -Colorectal surgery evaluation, patient seen by Dr. Moore initially. CT recommended with 1/2 dose contrast Due to renal insuf. -H&H stable, 12.3/38.5 -no active rectal bleeding -regular diet started, tolerated well. -CT abd and chest done to r/o mets with contrast, results reviewed, no mets -Dr. Olea evaluated, biopsy still pending. Recommended radiation to shrink tumor before considering surgery. Patient and family not in favor chemotherapy. Consulted Dr. Grigsby-discussed neoadjuvant XRT, recommended follow-up next Sunday Cleared for discharge by Dr. 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 Was not required -creat improving, creat 2.0>>1.60>>1.65>>1.49>>1.47 Hyperkalemia, potassium 5.2 -Held Aldactone. 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 Has dressing changes done weekly per surgeon, Dr. العراقي. -f/u podiatry, has appointment set up. -Keep dressings dry and intact, if pt. still here by next week, will contact Dr. العراقي for dressing changes. -Patient okay out of bed, left heel bearing only, full weightbearing on right. -F/U Dr. العراقي next week, has appointment Afib, HR well controlled Unclear if he has hx, per son, hx of bradycardia, has PPM Pt. sees Dr. Cole. -12 lead EKG done 05/23-afib -Continue carvedilol -cont. telemetry ordered -short episodes of NSVT, 5 beats, labs checked. K okay -ectopy subsided, asymptomatic Patient stabilized, cleared for dc Discharged home in stable condition. Pt and son declined [facility] services Instructed to f/u Dr. Olea and Dr. Grigsby Heart healthy diet Activity as tolerated Continue with wound care Time Spent with Patient Total time spent providing and/or coordinating discharge services: 35 Greater than 30 minutes Status at Discharge Functional status at discharge: uses cane/walker Overall status at discharge: patient is progressing back to baseline Quality: VTE Deep Vein Thrombosis/Pulmonary Embolism Present on Admission: No Results Procedures completed during hospitalization: -S/P colonoscopy with bx 05/24- Rectal mass probable rectal cancer, diverticulosis Pending studies at discharge: Pending at discharge 05/24/18 08:18 Surgical [PTH] Routine Impressions ITS Impressions Abdomen/Bladder Ultrasound 05/25/18 00:00 CONCLUSION: 1. Surgically absent right kidney 2. Normal-appearing left kidney with 2 cysts in the upper pole. There is no hydronephrosis Abdomen/Pelvis CT 05/26/18 00:00 CONCLUSION: 1. I don't see evidence for metastatic disease. 2. There is no suspicious adenopathy 3. 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 Chest CT 05/26/18 00:00 CONCLUSION: 1. Moderate compensated cardiomegaly without parenchymal metastatic disease Discharge Plan Discharge Disposition Patient Disposition: Discharge Home Discharge Condition Condition: Stable Discharge Order Discharge Orders: Discharge Order (Routine); Ordered 05/27/18 Ordered By: Jason Olea Physicians Team Primary Care Provider: Power Perez Attending Provider: Denis Stearns Other Providers: Dc Cabrera ; Power Moore ; Carlos Manuel Grigsby Rxs /Orders / Referrals /Forms Prescriptions: Continue sulfamethoxazole-trimethoprim 400-80 mg Tablet 2 tab PO BID RF: 0 amlodipine 5 mg Tablet 5 mg PO DAILY RF: 0 spironolactone 25 mg Tablet 25 mg PO DAILY RF: 0 carvedilol 3.125 mg Tablet 3.125 mg PO DAILY RF: 0 furosemide 20 mg Tablet 20 mg PO DAILY RF: 0 oxycodone 5 mg Tablet 5 mg PO Q4-6H PRN (Reason: Pain) RF: 0 aspirin [Aspir-81] 81 mg Tablet,Delayed Release (Dr/Ec) 81 mg PO DAILY RF: 0 Referrals: Power Perez MD [Primary Care Provider] - See Instructions Status ED Status: Left Department Discharge Information Discharge Date/Time: 05/27/18 19:09
== END 2018-05-27 19:09 | disposition home or self-care (01) | DRG 375 ==
LOC: PHED 11:36 → PHEDA 11:36 → PH3 15:05 → N07 05-24 19:48
PROVIDERS: ADMIT Hospitalist; ATTEND Hospitalist
PROC: COLONOS (2018-05-24 15:38)
DX: E87.5 Hyperkalemia; N17.9 Acute kidney failure, unspecified; Z79.02 Long term (current) use of antithrombotics/antiplatelets; I47.2 Ventricular tachycardia; I25.10 Atherosclerotic heart disease of native coronary artery without angina pectoris; H54.62 Unqualified visual loss, left eye, normal vision right eye; H91.92 Unspecified hearing loss, left ear; K92.1 Melena; I50.9 Heart failure, unspecified; C20 Malignant neoplasm of rectum; K57.30 Diverticulosis of large intestine without perforation or abscess without bleeding; Z96.652 Presence of left artificial knee joint; Z89.422 Acquired absence of other left toe(s); I48.91 Unspecified atrial fibrillation; Z95.0 Presence of cardiac pacemaker; I71.4 Abdominal aortic aneurysm, without rupture; I13.0 Hypertensive heart and chronic kidney disease with heart failure and stage 1 through stage 4 chronic kidney disease, or unspecified chronic kidney disease; Z89.421 Acquired absence of other right toe(s); D50.0 Iron deficiency anemia secondary to blood loss (chronic); N18.3 Chronic kidney disease, stage 3 (moderate); N40.2 Nodular prostate without lower urinary tract symptoms
CPT/HCPCS: 71260; 74176; 74177; 76775; 80048; 80053; 80307; 82378; 83690; 83735; 85014; 85018; 85025; 85027; 85610; 85730; 86850; 86900; 86901; 88305; 90760; 90761; 93005; 96360; 96361; 97162; 99231; 99285; C9113; G0378; J2704; J3480; J7030; J7120; Q9967